=== PATIENT | female | born 1930 | race Caucasian/White ===

== ENCOUNTER 2018-05-07 22:36 | Inpatient (IN) | payer OTHER | END 2018-05-08 11:57 | disposition home or self-care (01) | LOC: ED 22:36 → DU 05-08 11:57 → ED 22:36 → DU 05-08 00:57 ==

== ENCOUNTER 2018-12-21 12:40 | Emergency (ER) | payer OTHER ==
[~2018-12-21] VITALS: Ht 162.6 cm; Wt 79.4 kg
[2018-12-21 12:42] VITALS: Ht 162.6 cm; Wt 79.4 kg
[2018-12-21 15:46] VITALS: BP 140/35
== END 2018-12-21 16:39 | disposition home or self-care (01) ==
LOC: ED 12:40
DX: S82.55XA Nondisplaced fracture of medial malleolus of left tibia, initial encounter for closed fracture (principal); I10 Essential (primary) hypertension; M54.2 Cervicalgia; F32.9 Major depressive disorder, single episode, unspecified; K21.9 Gastro-esophageal reflux disease without esophagitis; Z98.890 Other specified postprocedural states; Z86.73 Personal history of transient ischemic attack (TIA), and cerebral infarction without residual deficits; Z88.0 Allergy status to penicillin; Z88.2 Allergy status to sulfonamides; Z91.013 Allergy to seafood; W17.89XA Other fall from one level to another, initial encounter; Y93.89 Activity, other specified; Y92.89 Other specified places as the place of occurrence of the external cause; Y99.8 Other external cause status
CPT/HCPCS: Q0092

== ENCOUNTER 2019-01-19 10:53 | Inpatient (IN) | payer OTHER ==
[~2019-01-19] VITALS: Ht 170.2 cm; Wt 68.0 kg
[2019-01-19 10:55] VITALS: Ht 170.2 cm; Wt 68.0 kg
[2019-01-19 12:07] LABS: BASOPHIL % 0.3 % (0-2); PLATELET COUNT 391 x10^3mcL (130-400); RED CELL DISTRIBUTION WIDTH 16.8 % (11.5-14.5)
[2019-01-19 12:37] LABS: ALKALINE PHOSPHATASE 72 U/L (46-116); ALT/SGPT 17 U/L (14-59); AST/SGOT 15 U/L (15-37); BILIRUBIN TOTAL 0.2 mg/dL (0.20-1.00); CALCIUM 8.1 mg/dL (8.5-10.1); CARBON DIOXIDE 24.1 mmol/L (21-32); CHLORIDE SERUM 102 mmol/L (98-107); CREATININE SERUM 3.8 mg/dL (0.6-1.0); GLUCOSE SERUM 113 mg/dL (74-106); POTASSIUM SERUM 4.6 mmol/L (3.5-5.1); SODIUM SERUM 136 mmol/L (136-145); TOTAL PROTEIN, SERUM 6.7 g/dL (6.4-8.2)
[2019-01-19 12:39] LABS: ALBUMIN 2.5 g/dL (3.4-5.0)
[2019-01-19 15:14] LABS: microscopic required? YES
[2019-01-19 15:17] LABS: urine erythrocyte 2+ (NEGATIVE)
[2019-01-19] MEDS ORDERED: XANAX0.25 MG PO (16:00)
[2019-01-19] MEDS ORDERED: AMLODIPINE BES2.5 M1 PO (16:00)
[2019-01-19] MEDS ORDERED: BEN20 PO (16:01)
[2019-01-19] MEDS ORDERED: DICLOFONO2.5 GM TOP (16:01)
[2019-01-19] MEDS ORDERED: DOK250 MG PO (16:02)
[2019-01-19] MEDS ORDERED: ENALAPRIL MALEA10 MG PO (16:02)
[2019-01-19] MEDS ORDERED: ARICEPT5 MG PO (16:02)
[2019-01-19] MEDS ORDERED: FLONS (16:02)
[2019-01-19] MEDS ORDERED: HYDROCHLOROTHIA25 MG PO (16:03)
[2019-01-19] MEDS ORDERED: HYDRALAZINE PO (16:03)
[2019-01-19] MEDS ORDERED: CLARITIN10 MG PO (16:04)
[2019-01-19] MEDS ORDERED: MONTELUKAST SOD10 M1 PO (16:04)
[2019-01-19] MEDS ORDERED: GOOD SENSE OMEP20 MG PO (16:04)
[2019-01-19] MEDS ORDERED: D3 20002000 IU PO (16:15)
[2019-01-19] MEDS ORDERED: TIROSINT13 MCG PO (16:15)
[2019-01-19] MEDS ORDERED: TYLENOL325 M1 PO (16:17)
[2019-01-19] MEDS ORDERED: HYDROCODONE BIT1 T47 PO (16:18)
[2019-01-19] MEDS ORDERED: GOOD NEIGH1200 MG/15 PO (16:19)
[2019-01-19 17:24] VITALS: BP 122/46
[2019-01-19 18:37] VITALS: BP 127/47
[2019-01-19 20:46] VITALS: BP 115/46
[2019-01-20 04:36] VITALS: BP 106/42
[2019-01-20 06:26] LABS: CALCIUM 7.9 mg/dL (8.5-10.1); CHLORIDE SERUM 109 mmol/L (98-107); CREATININE SERUM 2.5 mg/dL (0.6-1.0); GLUCOSE SERUM 91 mg/dL (74-106); MAGNESIUM 1.6 mg/dL (1.8-2.4); PHOSPHOROUS 3.5 mg/dL (2.5-4.9); POTASSIUM SERUM 4.8 mmol/L (3.5-5.1); SODIUM SERUM 140 mmol/L (136-145)
[2019-01-20 06:44] LABS: BASOPHIL % 0.4 % (0-2); PLATELET COUNT 334 x10^3mcL (130-400); RED CELL DISTRIBUTION WIDTH 16.5 % (11.5-14.5)
[2019-01-20 08:50] VITALS: BP 108/43
[2019-01-20 12:25] VITALS: BP 131/37
[2019-01-20 17:07] VITALS: BP 135/64
[2019-01-20 19:28] LABS: AMPHETAMINE QUAL UR NONE DETECTED (See below)
[2019-01-20 20:30] VITALS: BP 187/63
[2019-01-21 05:21] VITALS: BP 156/45
[2019-01-21 07:07] LABS: BASOPHIL % 0.3 % (0-2); PLATELET COUNT 318 x10^3mcL (130-400); RED CELL DISTRIBUTION WIDTH 16.2 % (11.5-14.5)
[2019-01-21 07:34] LABS: CALCIUM 8.1 mg/dL (8.5-10.1); CARBON DIOXIDE 22.7 mmol/L (21-32); CHLORIDE SERUM 111 mmol/L (98-107); CREATININE SERUM 1.8 mg/dL (0.6-1.0); GLUCOSE SERUM 84 mg/dL (74-106); MAGNESIUM 1.6 mg/dL (1.8-2.4); PHOSPHOROUS 2.7 mg/dL (2.5-4.9); POTASSIUM SERUM 4.5 mmol/L (3.5-5.1); SODIUM SERUM 143 mmol/L (136-145)
[2019-01-21 08:21] VITALS: BP 148/60
[2019-01-21 11:44] VITALS: BP 150/59
[2019-01-21 16:13] VITALS: BP 141/62
[2019-01-21 21:12] VITALS: BP 182/70
[2019-01-21 23:35] VITALS: BP 131/52
[2019-01-22 05:26] VITALS: BP 141/59
[2019-01-22 06:43] LABS: BASOPHIL % 0.4 % (0-2); PLATELET COUNT 340 x10^3mcL (130-400)
[2019-01-22 07:23] LABS: CARBON DIOXIDE 22.8 mmol/L (21-32); CHLORIDE SERUM 112 mmol/L (98-107); CREATININE SERUM 1.4 mg/dL (0.6-1.0); GLUCOSE SERUM 105 mg/dL (74-106); POTASSIUM SERUM 4.3 mmol/L (3.5-5.1); SODIUM SERUM 144 mmol/L (136-145)
[2019-01-22 07:36] LABS: RED CELL DISTRIBUTION WIDTH 16.8 % (11.5-14.5)
[2019-01-22 09:20] VITALS: BP 169/62
[2019-01-22 17:19] VITALS: BP 168/69
[2019-01-22 18:23] LABS: CALCIUM 8.1 mg/dL (8.5-10.1); CARBON DIOXIDE 23.1 mmol/L (21-32); CHLORIDE SERUM 113 mmol/L (98-107); CREATININE SERUM 1.3 mg/dL (0.6-1.0); GLUCOSE SERUM 87 mg/dL (74-106); POTASSIUM SERUM 4.9 mmol/L (3.5-5.1); SODIUM SERUM 144 mmol/L (136-145)
[2019-01-22 21:08] VITALS: BP 190/62
[2019-01-22 22:20] VITALS: BP 152/53
[2019-01-23 06:11] VITALS: BP 169/86
[2019-01-23 06:13] LABS: CALCIUM 8.3 mg/dL (8.5-10.1); CARBON DIOXIDE 26.3 mmol/L (21-32); CHLORIDE SERUM 112 mmol/L (98-107); CREATININE SERUM 1.3 mg/dL (0.6-1.0); GLUCOSE SERUM 122 mg/dL (74-106); POTASSIUM SERUM 4.7 mmol/L (3.5-5.1); SODIUM SERUM 144 mmol/L (136-145)
[2019-01-23 06:16] LABS: BASOPHIL % 0.1 % (0-2); PLATELET COUNT 367 x10^3mcL (130-400)
[2019-01-23 06:35] VITALS: BP 166/60
[2019-01-23 07:36] LABS: RED CELL DISTRIBUTION WIDTH 16.9 % (11.5-14.5)
[2019-01-23 08:15] VITALS: BP 140/50
[2019-01-23 12:40] VITALS: BP 143/59
[2019-01-23 17:27] VITALS: BP 159/59
[2019-01-23 20:37] VITALS: BP 138/58
[2019-01-24 05:46] VITALS: BP 133/59
[2019-01-24 07:04] LABS: UA SPECIFIC GRAVITY 1.015 (1.005-1.035); microscopic required? YES; urine erythrocyte 2+ (NEGATIVE)
[2019-01-24 07:07] LABS: BASOPHIL % 0.6 % (0-2); PLATELET COUNT 323 x10^3mcL (130-400)
[2019-01-24 07:14] LABS: CALCIUM 8.2 mg/dL (8.5-10.1); CARBON DIOXIDE 23.9 mmol/L (21-32); CHLORIDE SERUM 112 mmol/L (98-107); CREATININE SERUM 1.3 mg/dL (0.6-1.0); GLUCOSE SERUM 106 mg/dL (74-106); POTASSIUM SERUM 4.3 mmol/L (3.5-5.1); SODIUM SERUM 143 mmol/L (136-145)
[2019-01-24 07:22] LABS: RED CELL DISTRIBUTION WIDTH 16.8 % (11.5-14.5)
[2019-01-24 12:17] VITALS: BP 131/57
[2019-01-24 16:46] VITALS: BP 123/57
[2019-01-24 21:31] VITALS: BP 117/60
[2019-01-24 23:46] LABS: microscopic required? YES; urine erythrocyte 1+ (NEGATIVE)
[2019-01-25 05:34] VITALS: BP 123/68
[2019-01-25 06:49] LABS: BASOPHIL % 0.3 % (0-2); PLATELET COUNT 322 x10^3mcL (130-400)
[2019-01-25 06:51] LABS: CARBON DIOXIDE 28.5 mmol/L (21-32); CHLORIDE SERUM 113 mmol/L (98-107); CREATININE SERUM 1.2 mg/dL (0.6-1.0); GLUCOSE SERUM 100 mg/dL (74-106); POTASSIUM SERUM 4.3 mmol/L (3.5-5.1); SODIUM SERUM 146 mmol/L (136-145)
[2019-01-25 06:58] LABS: RED CELL DISTRIBUTION WIDTH 17.6 % (11.5-14.5)
[2019-01-25 09:18] VITALS: BP 100/49
[2019-01-25 12:22] VITALS: BP 108/50
[2019-01-25 16:57] VITALS: BP 171/70
[2019-01-25 20:16] VITALS: BP 125/62
[2019-01-25 21:01] VITALS: BP 125/62
[2019-01-26 05:55] VITALS: BP 159/54
[2019-01-26 06:29] LABS: BASOPHIL % 0.7 % (0-2); PLATELET COUNT 333 x10^3mcL (130-400)
[2019-01-26 07:12] LABS: CALCIUM 7.8 mg/dL (8.5-10.1); CARBON DIOXIDE 25.3 mmol/L (21-32); CHLORIDE SERUM 110 mmol/L (98-107); CREATININE SERUM 1.2 mg/dL (0.6-1.0); GLUCOSE SERUM 103 mg/dL (74-106); SODIUM SERUM 143 mmol/L (136-145)
[2019-01-26 07:29] LABS: RED CELL DISTRIBUTION WIDTH 17.1 % (11.5-14.5)
[2019-01-26 09:34] VITALS: BP 139/58
[2019-01-26] MEDS ORDERED: HYDROCODONE BIT1 T47 PO (13:14)
[2019-01-26 14:51] VITALS: BP 139/58
[2019-01-26 16:44] VITALS: BP 135/61
== END 2019-01-26 17:20 | DRG 871 ==
LOC: ED 10:53 → DU 14:39 → MU 01-21 13:50 → DU 01-22 20:45 → MU 01-25 10:45
PROVIDERS: Emergency Medicine; General Practice; Internal Medicine Infectious Disease; ADMIT Internal Medicine
DX: A41.9 Sepsis, unspecified organism (principal); G92 Toxic encephalopathy; N17.0 Acute kidney failure with tubular necrosis; N39.0 Urinary tract infection, site not specified; N13.30 Unspecified hydronephrosis; E86.0 Dehydration; M25.572 Pain in left ankle and joints of left foot; R73.03 Prediabetes; I10 Essential (primary) hypertension; E03.9 Hypothyroidism, unspecified; F32.9 Major depressive disorder, single episode, unspecified; I25.2 Old myocardial infarction; Z68.23 Body mass index [BMI] 23.0-23.9, adult
CPT/HCPCS: 36600; 87046; 87046-59; 97110-GP; 97530-GP; C9113; G0378; J0360; J0696; J1956; J3475; J7030; J7060; Q0092